=== PATIENT | female | born 1975 | race African-American/Black ===

== ENCOUNTER 2017-11-25 23:41 | Emergency (ER) | payer MEDICAID, OTHER ==
[~2017-11-25] VITALS: Ht 175.3 cm; Wt 104.3 kg
[2017-11-25 23:45] VITALS: BP 169/96
[2017-11-25] MEDS ORDERED: cloNIDine HCL 0.1 MG TAB PO ONE (23:45)
[2017-11-25] MEDS ORDERED: cloNIDine HCL 0.1 MG TAB ONE (23:45)
[2017-11-26 00:48] LABS: Basophils # (auto) 0 uL; Basophils % (auto) 0.3 % (0.0-2.0); Eosinophils # (auto) 0.1 uL; Hematocrit 37.5 % (36.0-46.0); Hemoglobin 12.1 g/dL (12.2-16.2); Lymphocytes # (auto) 1.7 uL; Lymphocytes % (auto) 41.9 % (10.0-50.0); Mean Corpuscular Hemoglobin 24.3 pg (28.0-32.0); Mean Corpuscular Hgb Conc. 32.3 g/dL (32.0-36.0); Mean Corpuscular Volume 75.3 fL (80.0-100.0); Monocytes # (auto) 0.4 uL; Monocytes % (auto) 9.5 % (0.0-12.0); Neutrophils # (auto) 1.9 uL; Neutrophils % (auto) 46.3 % (37.0-80.0); Platelet Count (auto) 150 10^3/uL (140-450); Red Blood Cells 4.98 10^6/uL (4.0-5.20); Red Cell Distribution Width 15.9 % (11.8-14.3)
[2017-11-26 01:05] LABS: Albumin 3.3 g/dL (3.4-5.0); BUN/Creatinine Ratio 11.7
[2017-11-26 01:08] LABS: Bilirubin, Total 0.2 mg/dL (0.2-1.0); Total Protein 7.3 g/dL (6.4-8.2)
== END 2017-11-26 02:00 | disposition left against medical advice (07) ==
LOC: ER 23:41 → EDBD 23:41 → ER 11-26 02:00
DX: R51 Headache (principal); Z53.21 Procedure and treatment not carried out due to patient leaving prior to being seen by health care provider
CPT/HCPCS: 36415; 80053; 85025

== ENCOUNTER 2019-02-12 12:59 | Emergency (ER) | payer MEDICAID ==
[~2019-02-12] VITALS: Ht 170.2 cm; Wt 105.3 kg
[2019-02-12 14:04] VITALS: BP 155/93
[2019-02-12 14:09] LABS: Urine Bacteria NONE SEEN /hpf (None Seen); Urine Blood Negative /uL (Negative); Urine Specific Gravity 1.035 (1.001-1.035); Urine WBC <1 /hpf (0 - 5)
[2019-02-12 14:13] LABS: Basophils # (auto) 0.1 uL; Basophils % (auto) 1.4 % (0.0-2.0); Eosinophils # (auto) 0.1 uL; Eosinophils % (auto) 1.5 % (0.0-7.0); Hematocrit 40.8 % (36.0-46.0); Hemoglobin 13.7 g/dL (12.2-16.2); Lymphocytes # (auto) 1.4 uL; Lymphocytes % (auto) 35.4 % (10.0-50.0); Mean Corpuscular Hemoglobin 27.3 pg (28.0-32.0); Mean Corpuscular Hgb Conc. 33.7 g/dL (32.0-36.0); Mean Corpuscular Volume 81.2 fL (80.0-100.0); Monocytes # (auto) 0.4 uL; Monocytes % (auto) 9.8 % (0.0-12.0); Neutrophils # (auto) 2.1 uL; Neutrophils % (auto) 51.9 % (37.0-80.0); Platelet Count (auto) 139 10^3/uL (140-450); Red Blood Cells 5.02 10^6/uL (4.0-5.20); Red Cell Distribution Width 13.2 % (11.8-14.3)
[2019-02-12 14:51] LABS: Albumin 3.5 g/dL (3.4-5.0); Calcium 8.8 mg/dL (8.5-10.1); Potassium 4.1 mmol/L (3.5-5.1)
[2019-02-12 14:54] LABS: BUN/Creatinine Ratio 12.6; Bilirubin, Total 0.2 mg/dL (0.2-1.0); Total Protein 7.8 g/dL (6.4-8.2)
[2019-02-12] MEDS ORDERED: SODIUM CHLORIDE 0.9% 1,000 ML IV ONE (15:30)
[2019-02-12] MEDS ORDERED: InsuLIN REG 1unit/0.01ml Soln (100units/ml) IV ONE (15:30)
== END 2019-02-12 17:27 | disposition home or self-care (01) ==
LOC: ER 13:03
DX: J40 Bronchitis, not specified as acute or chronic (principal); E11.65 Type 2 diabetes mellitus with hyperglycemia; J44.9 Chronic obstructive pulmonary disease, unspecified
CPT/HCPCS: 36415; 71046; 80053; 81001; 82962; 85025; 93005; 96361; 96374; 99284; J7030

== ENCOUNTER 2020-10-02 12:04 | Emergency (ER) | payer MEDICAID ==
[~2020-10-02] VITALS: Ht 170.2 cm; Wt 81.6 kg
[2020-10-02 13:42] VITALS: BP 155/100
[2020-10-02] MEDS ORDERED: InsuLIN REG 1unit/0.01ml Soln (100units/ml) SC ONE (15:15)
== END 2020-10-02 15:53 | disposition home or self-care (01) ==
LOC: ER 12:04
DX: L72.9 Follicular cyst of the skin and subcutaneous tissue, unspecified (principal); E11.65 Type 2 diabetes mellitus with hyperglycemia; J44.9 Chronic obstructive pulmonary disease, unspecified; E11.9 Type 2 diabetes mellitus without complications; Z88.0 Allergy status to penicillin
CPT/HCPCS: 76705; 82962; 96372

== ENCOUNTER 2020-10-06 20:34 | Emergency (ER) | payer MEDICAID ==
[~2020-10-06] VITALS: Ht 162.6 cm; Wt 136.1 kg
[2020-10-06 22:41] LABS: Eosinophils # (auto) 0.1 10 ^3/uL (0-0.8); Lymphocytes # (auto) 1.2 10 ^3/uL (0.4-5.4); Monocytes # (auto) 0.4 10 ^3/uL (0-1.3); White Blood Cell 3.9 10^3/uL (4.4-10.8)
[2020-10-06 22:42] LABS: Basophils # (auto) 0 10 ^3/uL (0-0.2); Basophils % (auto) 1.1 % (0.0-2.0); Eosinophils % (auto) 1.4 % (0.0-7.0); Hematocrit 33.8 % (36.0-46.0); Mean Corpuscular Hemoglobin 23.4 pg (28.0-32.0); Mean Corpuscular Hgb Conc. 32.5 g/dL (32.0-36.0); Mean Corpuscular Volume 72.1 fL (80.0-100.0); Neutrophils # (auto) 2.2 10 ^3/uL (1.6-8.6); Neutrophils % (auto) 56.5 % (37.0-80.0); Nucleated Red Blood Cells % 0.1 %; Red Blood Cells 4.68 10^6/uL (4.0-5.20)
[2020-10-06 22:45] LABS: Urine Bacteria NONE SEEN /hpf (None Seen); Urine Blood Negative /uL (Negative); Urine Specific Gravity 1.015 (1.001-1.035); Urine WBC 2 /hpf (0 - 5)
[2020-10-06 23:00] LABS: Albumin 2.8 g/dL (3.4-5.0); BUN/Creatinine Ratio 6.5; Calcium 8.4 mg/dL (8.5-10.1); Magnesium 1.8 mg/dL (1.6-2.6); Potassium 3.8 mmol/L (3.5-5.1)
[2020-10-06 23:03] LABS: Bilirubin, Total 0.2 mg/dL (0.2-1.0)
[2020-10-06 23:06] LABS: Lactic Acid w/Reflex 2.7 mmol/L (0.4-2.0)
[2020-10-07] MEDS ORDERED: IOHEXOL 300 MG/ML 100ML BOTTLE IJ ONE (00:07)
[2020-10-07] MEDS ORDERED: SODIUM CHLORIDE 0.9% 1,000 ML IV ONE (00:15)
[2020-10-07] MEDS ORDERED: cefTRIAXone 1GM/50ML D5W 50 ML IV ONE (06:15)
[2020-10-07] MEDS ORDERED: KETOROLAC TROMETH 30 MG/ML 1ML VIAL IV ONE (07:00)
[2020-10-07 07:02] VITALS: BP 149/73
== END 2020-10-07 07:15 | disposition home or self-care (01) ==
LOC: EDBD 20:34 → ER 20:36
DX: N39.0 Urinary tract infection, site not specified (principal); J44.9 Chronic obstructive pulmonary disease, unspecified; E11.9 Type 2 diabetes mellitus without complications; Z88.0 Allergy status to penicillin; Z98.890 Other specified postprocedural states
CPT/HCPCS: 36415; 74177; 80053; 81001; 82962; 83605; 83690; 83735; 84702; 85025; 96361; 96365; 96375; 99285; J0696; J1885; Q9967

== ENCOUNTER 2021-02-22 15:26 | Emergency (ER) | payer MEDICAID ==
[~2021-02-22] VITALS: Ht 170.2 cm; Wt 95.3 kg
[2021-02-22 18:58] VITALS: BP 165/102
== END 2021-02-22 19:39 | disposition home or self-care (01) ==
LOC: ER 15:26
DX: U07.1 COVID-19 (principal); M79.10 Myalgia, unspecified site; J44.9 Chronic obstructive pulmonary disease, unspecified; E11.9 Type 2 diabetes mellitus without complications
CPT/HCPCS: 36415; 71045; 87426

== ENCOUNTER 2022-03-09 10:12 | Emergency (ER) | payer MEDICAID ==
[~2022-03-09] VITALS: Ht 172.7 cm; Wt 106.0 kg
[2022-03-09 11:12] LABS: Basophils # (auto) 0 10 ^3/uL (0-0.2); Eosinophils # (auto) 0.1 10 ^3/uL (0-0.8); Lymphocytes # (auto) 1.3 10 ^3/uL (0.4-5.4); Monocytes # (auto) 0.4 10 ^3/uL (0-1.3); Nucleated Red Blood Cells % 0.1 %; White Blood Cell 3.8 10^3/uL (4.4-10.8)
[2022-03-09 11:18] LABS: Basophils % (auto) 1.1 % (0.0-2.0); Hematocrit 30.3 % (36.0-46.0); Lymphocytes % (auto) 33.5 % (10.0-50.0); Mean Corpuscular Hemoglobin 24.8 pg (28.0-32.0); Mean Corpuscular Volume 75.1 fL (80.0-100.0); Monocytes % (auto) 10.6 % (0.0-12.0); Neutrophils % (auto) 52.8 % (37.0-80.0); Red Blood Cells 4.04 10^6/uL (4.0-5.20)
[2022-03-09 11:33] LABS: Potassium 4.2 mmol/L (3.5-5.1)
[2022-03-09 11:39] LABS: Albumin 2.8 g/dL (3.4-5.0); BUN/Creatinine Ratio 15.4; Bilirubin, Total 0.3 mg/dL (0.2-1.0); Calcium 8.4 mg/dL (8.5-10.1); Total Protein 6.3 g/dL (6.4-8.2)
[2022-03-09] MEDS ORDERED: LISI20TA28 PO (12:32)
[2022-03-09 12:54] VITALS: BP 178/100
== END 2022-03-09 12:56 | disposition home or self-care (01) ==
LOC: ER 10:12
DX: I10 Essential (primary) hypertension (principal); E11.9 Type 2 diabetes mellitus without complications; R06.02 Shortness of breath; J44.9 Chronic obstructive pulmonary disease, unspecified; Z88.0 Allergy status to penicillin
CPT/HCPCS: 36415; 71045; 80053; 82962; 83880; 84484; 85025; 93005